=== PATIENT | male | born 2000 | race Caucasian/White ===

== ENCOUNTER 2022-05-14 19:04 | Emergency (ER) | payer MEDICAID, OTHER ==
[2022-05-14 19:36] VITALS: BP 111/78; PULSE 92
[2022-05-14] MEDS ORDERED: Polyethylene Glycol/Electrolytes 4,000 ML Bottle PO ONE (19:53)
== END 2022-05-14 20:49 | disposition home or self-care (01) ==
LOC: JD.ED 19:04
DX: R10.32 Left lower quadrant pain (principal); Z88.2 Allergy status to sulfonamides; Z88.8 Allergy status to other drugs, medicaments and biological substances; Z79.899 Other long term (current) drug therapy
CPT/HCPCS: 74019; 99284; A9270